=== PATIENT | female | born 1985 | race Caucasian/White ===

== ENCOUNTER 2017-01-17 17:40 | Emergency (ER) | payer OTHER ==
[~2017-01-17] VITALS: Ht 157.5 cm; Wt 47.6 kg
[2017-01-17 17:50] VITALS: BP 119/83
[2017-01-17 20:05] LABS: APPEARANCE,URINE CLEAR (CLEAR); BILIRUBIN,URINE NEGATIVE (NEGATIVE); BLOOD, URINE NEGATIVE (NEGATIVE); COLOR,URINE YELLOW (YELLOW); LEUKOCYTE ESTERASE ,URINE TRACE (NEGATIVE); NITRITE, URINE NEGATIVE (NEGATIVE); PH,URINE 6.5 (5.0-9.0); PROTEIN,URINE NEGATIVE (NEGATIVE); UGLUCOSE NEGATIVE (NEGATIVE); UROBILINOGEN,URINE 0.2 EU/dL (0.2 - 1)
--- NOTE | 2017-01-17 20:20 | NUR ---
TO ER BED 8
--- NOTE | 2017-01-17 20:20 | NUR ---
31Y F BIB SELF C/O AB PAIN X 1 DAY WITH VOMIT AND DIARRHEA NO BLOOD . PT STATES PAIN IN INTERRMITTENT, NON RADIAITING. SKIN IS PINK/WARM/DRY; AAOX4 WITH EVEN AND STEADY GAIT; LUNGS CLEAR BL; HR EVEN AND REGULAR; PT DENIES ANY FEVER, CP, SOB, OR COUGH AT THIS TIME; PATIENT STATES PAIN OF 8/10 AT THIS TIME; VSS; PATIENT POSITIONED FOR COMFORT; HOB ELEVATED; BEDRAILS UP X2; BED DOWN. ER MD MADE AWARE OF PT STATUS.
[2017-01-17 20:23] LABS: BACTERIA,URINE RARE /HPF (None Seen); MUCUS,URINE 4+ /LPF (None Seen); RBC,URINE 0-3 /HPF (0-5); WBC,URINE 0-3 /HPF (0-5)
[2017-01-17 21:24] LABS: BASOPHILS # (AUTO) 0.4 K/uL (0.00-0.22); BASOPHILS % (AUTO) 2.8 % (0.0-2.0); EOSINOPHILS # (AUTO) 0.3 K/uL (0-0.4); EOSINOPHILS % (AUTO) 2.5 % (0.0-4.0); HEMATOCRIT 44.6 % (36-48); HEMOGLOBIN 14.5 g/dL (12.0-16.0); LYMPHOCYTES # (AUTO) 0.8 K/uL (2.5-16.5); LYMPHOCYTES % (AUTO) 6.1 % (20.5-51.1); MEAN CORPUSCULAR HEMOGLOBIN 27 pg (27-31); MEAN CORPUSCULAR HGB CONC 33 g/dL (33-37); MEAN CORPUSCULAR VOLUME 83 fL (80-94); MONOCYTES # (AUTO) 0.2 K/uL (0.8-1.0); MONOCYTES % (AUTO) 1.3 % (1.7-9.3); NEUTROPHILS # (AUTO) 11.8 K/uL (1.8-7.7); NEUTROPHILS % (AUTO) 87.3 % (42.2-75.2); PLATELET COUNT (AUTO) 228 K/uL (140-450); RED BLOOD CELL COUNT(AUTO) 5.39 MIL/uL (4.20-5.40); RED CELL DISTRIBUTION WIDTH 12.4 % (11.6-13.7); WHITE BLOOD COUNT (AUTO) 13.5 K/uL (4.8-10.8)
[2017-01-17 21:37] LABS: ANION GAP 13.2 (8-16); CALCIUM 8.9 mg/dL (8.5-10.1); CARBON DIOXIDE 28.1 mmol/L (21-32); CREATININE 0.7 mg/dL (0.6-1.3); POTASSIUM 3.3 mmol/L (3.5-5.1)
[2017-01-17] MEDS ORDERED: HYDROcodone/APAP 5/325 MG 1 TAB TAB PO ONE (21:40)
[2017-01-17] MEDS ORDERED: ONDANSETRON 4 MG ODT PO ONE (21:40)
[2017-01-17 21:44] LABS: ALBUMIN 4.1 g/dL (3.4-5.0); TOTAL BILIRUBIN 0.8 mg/dL (0.0-1.0); TOTAL PROTEIN, SERUM 8.1 g/dL (6.4-8.2)
--- NOTE | 2017-01-17 22:50 | NUR ---
Patient discharged with v/s stable. Written and verbal after care instructions given and explained. Patient alert, oriented and verbalized understanding of instructions. Ambulatory with steady gait. All questions addressed prior to discharge. ID band removed. Patient advised to follow up with PMD. Rx of NORCO 5/325, ZOFRAN 4MG, AND PEPCID 20MG given. Patient educated on indication of medication including possible reaction and side effects. Opportunity to ask questions provided and answered.
[2017-01-17 22:51] VITALS: BP 117/84
== END 2017-01-17 22:51 | disposition home or self-care (01) ==
LOC: MED 17:40
DX: K29.70 Gastritis, unspecified, without bleeding (principal); Z90.89 Acquired absence of other organs
CPT/HCPCS: 36415; 76705; 80053; 81001; 81025; 83690; 85025; 99285; Q0092; S0119

== ENCOUNTER 2018-04-25 18:37 | Emergency (ER) | payer OTHER ==
[~2018-04-25] VITALS: Ht 154.9 cm; Wt 55.1 kg
[2018-04-25 19:14] VITALS: BP 135/89
--- NOTE | 2018-04-25 19:19 | NUR ---
PT ASSISTED BACK TO LOBBY . PT IN STABLE CONDITION.
--- NOTE | 2018-04-25 21:11 | NUR ---
PT TAKEN TO BED 1
--- NOTE | 2018-04-25 21:26 | NUR ---
C/O ROULA FLANK PAIN X 2 DAYS. REPORTS NAUSEA, DIARRHEA AND CHILLS. DENIES FEVER, HEMATURIA/DYSURIA. 06/05 PAIN DENIES PMH
[2018-04-25] MEDS ORDERED: KETOROLAC 30 MG/ML VIAL IM ONE (22:10)
[2018-04-25] MEDS ORDERED: DIAZEPAM 5 MG TAB PO ONE (22:10)
[2018-04-25 22:21] LABS: APPEARANCE,URINE SL CLOUDY (CLEAR); BILIRUBIN,URINE NEGATIVE (NEGATIVE); BLOOD, URINE NEGATIVE (NEGATIVE); COLOR,URINE YELLOW (YELLOW); LEUKOCYTE ESTERASE ,URINE TRACE (NEGATIVE); NITRITE, URINE NEGATIVE (NEGATIVE); PH,URINE 6.5 (5.0-9.0); UGLUCOSE NEGATIVE (NEGATIVE)
[2018-04-25 22:35] LABS: RBC,URINE 0-5 (RARE) /HPF (0-5)
--- NOTE | 2018-04-25 23:36 | NUR ---
Patient discharged with v/s stable. Written and verbal after care instructions given and explained. Patient alert, oriented and verbalized understanding of instructions. Ambulatory with steady gait. All questions addressed prior to discharge. ID band removed. Patient advised to follow up with PMD. Rx of CIPRO 500 MG, LIDODERM PATCH 5%, NAPROSYN 500 MG, VALIUM 5 MG given. Patient educated on indication of medication including possible reaction and side effects. Opportunity to ask questions provided and answered.
[2018-04-25 23:37] VITALS: BP 140/75
== END 2018-04-25 23:36 | disposition home or self-care (01) ==
LOC: MED 18:37
DX: N39.0 Urinary tract infection, site not specified (principal); Z90.89 Acquired absence of other organs
CPT/HCPCS: 72100; 81001; 81025; 87086; 96372; 99285; J1885

== ENCOUNTER 2022-03-24 01:58 | Emergency (ER) | payer OTHER ==
[~2022-03-24] VITALS: Ht 157.5 cm; Wt 63.0 kg
[2022-03-24 02:14] VITALS: BP 128/78
--- NOTE | 2022-03-24 02:14 | NUR ---
TO BED AMBULATORY
--- NOTE | 2022-03-24 02:48 | NUR ---
36 yo f bib self with c/c of vaginal itching x1 wk. pt states she saw her pcp, he gave her one pill and instructed her to buy otc cream for the treatment of yeast infection. pt states it did not work and itching is becoming uncontrolled, she feels like she cant work comfortably. reports vulva is red and inflammed. denies hx, rx and allergies
--- NOTE | 2022-03-24 02:56 | NUR ---
Female Android Architect accompanied female patient for Pelvic Exam.
--- NOTE | 2022-03-24 03:08 | NUR ---
wet mount collected and taken to lab.
[2022-03-24] MEDS ORDERED: NAPR-54 PO ×2 (03:37→08:43)
[2022-03-24] MEDS ORDERED: CEPH-588 PO ×2 (03:37→08:43)
[2022-03-24 03:45] VITALS: BP 128/78
--- NOTE | 2022-03-24 03:45 | NUR ---
Patient discharged with v/s stable. Written and verbal after care instructions given and explained. Patient alert, oriented and verbalized understanding of instructions. Ambulatory with steady gait. All questions addressed prior to discharge. ID band removed. Patient advised to follow up with PMD. Rx of keflex and naprosyn given. Patient educated on indication of medication including possible reaction and side effects. Opportunity to ask questions provided and answered.
== END 2022-03-24 03:45 | disposition home or self-care (01) ==
LOC: MED 01:58
DX: N76.0 Acute vaginitis (principal)
CPT/HCPCS: 87210; 99283

== ENCOUNTER 2023-01-19 02:25 | Inpatient (IN) | payer OTHER ==
[~2023-01-19] VITALS: Ht 157.5 cm; Wt 55.8 kg
[~2023-01-19 02:25] MED LIST: CEPH-588 PO; NAPR-54 PO
[2023-01-19 02:27] VITALS: BP 127/81
[2023-01-19] MEDS: NACL 0.9% 1,000 ML IV SCH ×2 (02:44→11:24)
[2023-01-19] MEDS ORDERED: NACL 0.9% 1,000 ML IV SCH (03:30)
[2023-01-19 03:47] LABS: BASOPHILS # (AUTO) 0.1 K/uL (0.00-0.22); BASOPHILS % (AUTO) 0.4 % (0.0-2.0); EOSINOPHILS # (AUTO) 0.1 K/uL (0-0.4); EOSINOPHILS % (AUTO) 0.8 % (0.0-4.0); HEMATOCRIT 29.1 % (36-48); HEMOGLOBIN 9.5 g/dL (12.0-16.0); LYMPHOCYTES # (AUTO) 2.8 K/uL (2.5-16.5); LYMPHOCYTES % (AUTO) 18.5 % (20.5-51.1); MEAN CORPUSCULAR HEMOGLOBIN 28 pg (27-31); MEAN CORPUSCULAR HGB CONC 33 g/dL (33-37); MEAN CORPUSCULAR VOLUME 83.8 fL (80-94); MONOCYTES # (AUTO) 1.3 K/uL (0.8-1.0); MONOCYTES % (AUTO) 8.5 % (1.7-9.3); NEUTROPHILS # (AUTO) 10.7 K/uL (1.8-7.7); NEUTROPHILS % (AUTO) 71.8 % (42.2-75.2); PLATELET COUNT (AUTO) 528 K/uL (140-450); RED BLOOD CELL COUNT(AUTO) 3.47 MIL/uL (4.20-5.40); RED CELL DISTRIBUTION WIDTH 15.1 % (11.6-13.7)
[2023-01-19] MEDS ORDERED: NACL 0.9% 1,000 ML IV ONE (04:25)
[2023-01-19] MEDS ORDERED: PIPERACILLIN/TAZOBACTAM 3.375 GM in DEXTROSE 5% 50 ML IV ONE (04:25)
[2023-01-19 04:40] LABS: PROTHROMBIN TIME 9.7 secs (10.8-13.4)
[2023-01-19 04:48] LABS: ALBUMIN 2.6 g/dL (3.4-5.0); ANION GAP 20.3 (8-16); ASPARTATE AMINOTRANSFERASE 5 U/L (15-37); CARBON DIOXIDE 15.8 mmol/L (21-32); CHLORIDE 105 mmol/L (98-107); CREATININE 0.9 mg/dL (0.6-1.3); GFR ARICAN-AMERICAN 90 mL/min (>90); GLUCOSE 200 mg/dL (74-106); POTASSIUM 3.1 mmol/L (3.5-5.1); SODIUM SERUM 138 mmol/L (136-145); TOTAL BILIRUBIN 0.4 mg/dL (0.0-1.0); UREA NITROGEN, BLOOD 15 mg/dL (7-18)
[2023-01-19] MEDS ORDERED: KCL 20 MEQ IN 100 mL PREMIX 200 ML IV ONE (05:15)
[2023-01-19] MEDS ORDERED: PIPERACILLIN/TAZOBACTAM 3.375 GM VIAL IV ONE ×2 (05:19→11:27)
[2023-01-19] MEDS ORDERED: MORPHINE SULFATE 4 MG/ML SYR IVP PRN (08:25)
[2023-01-19] MEDS ORDERED: ACETAMINOPHEN 325 MG TAB PO PRN (08:25)
[2023-01-19] MEDS ORDERED: PIPERACILLIN/TAZOBACTAM 3.375 GM in DEXTROSE 5% 50 ML IV SCH (12:00)
[2023-01-19 12:25] VITALS: BP 141/81
[2023-01-19] MEDS: PIPERACILLIN/TAZOBACTAM 3.375 GM in DEXTROSE 5% 50 ML IV SCH ×2 (13:52→22:38)
[2023-01-19 16:00] VITALS: BP 147/93
[2023-01-19 19:52] LABS: APPEARANCE,SPUN,BODY FLUID CLEAR (CLEAR); APPEARANCE,UNSPUN,BODY FLUID HAZY (CLEAR); COLOR,BODY FLUID RED (LT YELLOW); SPECIMENTYPE,BODY FLUID ABDOMINAL ABCESS; WBC, BODY FLUID 400 /cu. mm.
[2023-01-19 19:53] LABS: GLUCOSE,BODY FLUID 56 mg/dL; POLYNUCLEAR, BODY FLUID 42 %; RBC, BODY FLUID 30000 /cu. mm.
[2023-01-19 20:00] VITALS: BP 144/97
[2023-01-19] MEDS: HYDROcodone/APAP 5/325 MG 1 TAB TAB PO PRN (20:05)
[2023-01-19] MEDS: ONDANSETRON 4 MG/2 ML VIAL IVP PRN (20:11)
[2023-01-20] VITALS: BP 140/70
[2023-01-20] MEDS: NACL 0.9% 1,000 ML IV SCH ×2 (02:44→20:43)
[2023-01-20 04:00] VITALS: BP 122/64
[2023-01-20] MEDS: PIPERACILLIN/TAZOBACTAM 3.375 GM in DEXTROSE 5% 50 ML IV SCH ×3 (06:00→20:30)
[2023-01-20 06:48] LABS: ANION GAP 11.1 (8-16); CARBON DIOXIDE 26.3 mmol/L (21-32); CREATININE 0.5 mg/dL (0.6-1.3); POTASSIUM 3.4 mmol/L (3.5-5.1)
[2023-01-20 07:19] LABS: BASOPHILS # (AUTO) 0.1 K/uL (0.00-0.22); BASOPHILS % (AUTO) 1.2 % (0.0-2.0); EOSINOPHILS # (AUTO) 0.2 K/uL (0-0.4); EOSINOPHILS % (AUTO) 3.4 % (0.0-4.0); HEMATOCRIT 25.1 % (36-48); HEMOGLOBIN 8.3 g/dL (12.0-16.0); LYMPHOCYTES # (AUTO) 2.1 K/uL (2.5-16.5); LYMPHOCYTES % (AUTO) 35.2 % (20.5-51.1); MEAN CORPUSCULAR HEMOGLOBIN 28 pg (27-31); MEAN CORPUSCULAR HGB CONC 33 g/dL (33-37); MEAN CORPUSCULAR VOLUME 84.3 fL (80-94); MONOCYTES # (AUTO) 0.5 K/uL (0.8-1.0); MONOCYTES % (AUTO) 8.1 % (1.7-9.3); NEUTROPHILS # (AUTO) 3.1 K/uL (1.8-7.7); NEUTROPHILS % (AUTO) 52.1 % (42.2-75.2); PLATELET COUNT (AUTO) 450 K/uL (140-450); RED BLOOD CELL COUNT(AUTO) 2.98 MIL/uL (4.20-5.40); RED CELL DISTRIBUTION WIDTH 15.1 % (11.6-13.7); WHITE BLOOD COUNT (AUTO) 5.9 K/uL (4.8-10.8)
[2023-01-20 08:00] VITALS: BP 123/72
[2023-01-20] MEDS ORDERED: POTASSIUM CHLORIDE 10 MEQ TABER PO ONE (11:20)
[2023-01-20] MEDS ORDERED: MAG SULF 2000 MG/WATER PREMIX 50 ML IV ONE (11:20)
[2023-01-20 12:00] VITALS: BP 135/74
[2023-01-20 16:00] VITALS: BP 128/76
[2023-01-20 20:00] VITALS: BP 134/79
[2023-01-20] MEDS: HYDROcodone/APAP 5/325 MG 1 TAB TAB PO PRN (20:23)
[2023-01-20] MEDS: ONDANSETRON 4 MG/2 ML VIAL IVP PRN (20:26)
[2023-01-21] VITALS: BP 141/90
[2023-01-21 04:00] VITALS: BP 141/91
[2023-01-21] MEDS: PIPERACILLIN/TAZOBACTAM 3.375 GM in DEXTROSE 5% 50 ML IV SCH (05:59)
[2023-01-21 06:51] LABS: ANION GAP 10.4 (8-16); CARBON DIOXIDE 28.3 mmol/L (21-32); CREATININE 0.7 mg/dL (0.6-1.3); POTASSIUM 3.7 mmol/L (3.5-5.1)
[2023-01-21 06:54] LABS: BASOPHILS # (AUTO) 0.1 K/uL (0.00-0.22); BASOPHILS % (AUTO) 1.3 % (0.0-2.0); EOSINOPHILS # (AUTO) 0.2 K/uL (0-0.4); EOSINOPHILS % (AUTO) 4.1 % (0.0-4.0); HEMATOCRIT 25.8 % (36-48); HEMOGLOBIN 8.5 g/dL (12.0-16.0); LYMPHOCYTES # (AUTO) 2.2 K/uL (2.5-16.5); LYMPHOCYTES % (AUTO) 43.1 % (20.5-51.1); MEAN CORPUSCULAR HEMOGLOBIN 28 pg (27-31); MEAN CORPUSCULAR HGB CONC 33 g/dL (33-37); MEAN CORPUSCULAR VOLUME 84.2 fL (80-94); MONOCYTES # (AUTO) 0.5 K/uL (0.8-1.0); MONOCYTES % (AUTO) 8.9 % (1.7-9.3); NEUTROPHILS # (AUTO) 2.2 K/uL (1.8-7.7); NEUTROPHILS % (AUTO) 42.6 % (42.2-75.2); PLATELET COUNT (AUTO) 473 K/uL (140-450); RED BLOOD CELL COUNT(AUTO) 3.07 MIL/uL (4.20-5.40); RED CELL DISTRIBUTION WIDTH 14.7 % (11.6-13.7); WHITE BLOOD COUNT (AUTO) 5.1 K/uL (4.8-10.8)
[2023-01-21 08:00] VITALS: BP 90/47
[2023-01-21] MEDS ORDERED: AMOX-999 PO (11:36)
[2023-01-21 12:00] VITALS: BP 91/53
[2023-01-21 13:08] VITALS: BP 125/68
[2023-01-21] MEDS ORDERED: METR-520 PO (13:51)
[2023-01-21] MEDS ORDERED: CIPR500T4 PO (13:51)
== END 2023-01-21 14:10 | disposition home or self-care (01) | DRG 721 ==
LOC: MED 02:25 → MTU 08:27
PROVIDERS: ADMIT Student in an Organized Health Care Education/Training Program; ATTEND Student in an Organized Health Care Education/Training Program
PROC: 0W9F3ZX Drainage of Abdominal Wall, Percutaneous Approach, Diagnostic (ICD-10-PCS; principal; 2023-01-19)
DX: T81.49XA Infection following a procedure, other surgical site, initial encounter (principal); K65.1 Peritoneal abscess; A41.9 Sepsis, unspecified organism; E44.1 Mild protein-calorie malnutrition; E66.9 Obesity, unspecified; I10 Essential (primary) hypertension; Y82.8 Other medical devices associated with adverse incidents; Z20.822 Contact with and (suspected) exposure to COVID-19; Y83.8 Other surgical procedures as the cause of abnormal reaction of the patient, or of later complication, without mention of misadventure at the time of the procedure; Y92.89 Other specified places as the place of occurrence of the external cause; Z68.22 Body mass index [BMI] 22.0-22.9, adult
CPT/HCPCS: 36415; 75989; 80048; 80053; 82009; 82945; 83605; 83735; 84157; 84484; 85025; 85610; 85730; 87040; 87070; 87075; 87081; 87205; 89051; 93005; 96365; 96368; 99291; J1644; J2405; J2543; J3475; J3480; J7060; Q0092; Q9967